=== PATIENT | female | born 2000 | race Caucasian/White ===

== ENCOUNTER 2024-05-24 16:28 | Inpatient (IN) | payer OTHER ==
[~2024-05-24] VITALS: Ht 154.9 cm; Wt 87.7 kg
[2024-05-24 17:00] VITALS: BP 131/79; PULSE 91; TEMP 97.8
[2024-05-24] MEDS ORDERED: LR 1,000 ML IV SCH ×2 (17:15→23:30)
[2024-05-24] MEDS ORDERED: MAGNESIUM200 MG PO (17:30)
[2024-05-24] MEDS ORDERED: COLACE 100100 MG/CAP PO (17:31)
[2024-05-24 17:36] LABS: BASO # 0.1 K/mm3 (0.0-0.2); BASO % 0.5 % (0.0-2.0); EOS # 0.1 K/mm3 (0.0-0.7); EOS % 0.8 % (0.0-4.0); GRAN # 8.6 K/mm3 (1.4-6.5); HEMATOCRIT 37.2 % (37.0-47.0); HEMOGLOBIN 12.7 g/dl (12.5-16.0); LYMPH # 2.5 K/mm3 (1.2-3.4); LYMPH % 20.7 % (20.0-51.0); MEAN CELL VOLUME 90 fl (80.0-100.0); MEAN CORPUSCULAR HEMOGLOBIN 31 pg (27-31); MEAN CORPUSCULAR HGB CONC 34 g/dl (33.0-37.0); MEAN PLATELET VOLUME 9.4 fl (7.4-10.4); MONO # 0.7 K/mm3 (0.1-0.6); MONO % 5.6 % (1.7-9.3); PLATELET COUNT 370 K/mm3 (130-400); RED BLOOD COUNT 4.15 M/mm3 (4.10-5.30)
--- NOTE | 2024-05-24 18:20 | NUR ---
Sitting upright on birthing ball upon return from bathroom. IV to INT, as noted, no augmentation of labor at this time. Per , to hold on augmentation until midnight. This explained to patient. Verbalizes understanding.
[2024-05-24 18:30] VITALS: BP 142/80; PULSE 96; TEMP 98.3
--- NOTE | 2024-05-24 18:41 | NUR ---
1630 - Pt and spouse arrive ambulatory to unit, pt changes into gown, EFM explained and placed. Pt states she was squatting and felt a "pop" at 1545 then had a lot of clear fluid running down her legs. Fluid has not stopped leaking. Pt denies vaginal bleeding, reports good movement, and does not think she is having contractions but reports back pain that sometimes comes and goes. Amnitest swab done, positive. SVE with permission /, clear fluid noted. Dr. Maldonado on unit and notified, orders for admission received. Pt informed of plan to admit, verbalizes understanding. IV started in left forearm, labs drawn, LR started per protocol. Consents discussed and signed. Pt reports history of using Delta 8 last year, informed of need to do urine drug screen, pt verbalizes understanding and agreement. Pt denies needs at this time. 1735 - Pt taken off monitors to go to the bathroom, provided with panties and pad to wear for ambulation.
--- NOTE | 2024-05-24 19:11 | NUR ---
Up to bathroom.
--- NOTE | 2024-05-24 19:40 | NUR ---
Note intermittently broken tracing while patient sitting upright on birthing ball. Frequent repositioning of US.
--- NOTE | 2024-05-24 19:42 | NUR ---
Up to bathroom.
--- NOTE | 2024-05-24 19:57 | NUR ---
Allowed off of EFM to ambulate in hallways.
[2024-05-24 20:00] VITALS: BP 133/81; PULSE 88; TEMP 98.1
[2024-05-24 20:21] LABS: TRICYCLIC ANTIDEPRESS URINE NEGATIVE (NEGATIVE)
--- NOTE | 2024-05-24 21:11 | NUR ---
Allowed off of EFM to ambulate in hallways at this time. Accompanied by significant other.
[2024-05-24 22:30] VITALS: BP 123/72; PULSE 88; TEMP 98.2
--- NOTE | 2024-05-24 23:23 | NUR ---
Note patient beginning to breathe through some contractions.
[2024-05-24] MEDS ORDERED: LR & Oxytocin 500 ML IV SCH ×2 (23:30)
--- NOTE | 2024-05-24 23:56 | NUR ---
Pit start @ 2mU/min at this time with explanation to patient. Verbalizes understanding. Note, Category I strip prior to start.
[2024-05-25] VITALS (44 sets, daily range): BP systolic 89–136; BP diastolic 51–90; PULSE 67–121; TEMP 97.5–100.3
[2024-05-25] MEDS ORDERED: Ondansetron 4 MG/2 ML VIAL IV PRN ×2 (00:45→03:15)
--- NOTE | 2024-05-25 01:00 | NUR ---
Note continued difficulty tracing contractions, despite changing out monitor, multiple attempts to reposition toco.
--- NOTE | 2024-05-25 02:00 | NUR ---
Requests epidural. LR bolus begun. Will notify anesthesia of patient request.
--- NOTE | 2024-05-25 02:28 | NUR ---
RACHANA Jaeger, in-house.
[2024-05-25] MEDS ORDERED: ROPivacaine PF 0.2% 200 ML IV ONE (02:33)
[2024-05-25] MEDS ORDERED: diphenhydrAMINE 50 MG/ML 1 ML VIAL IV PRN (03:15)
[2024-05-25] MEDS ORDERED: Naloxone 0.4 MG/ML VIAL IV PRN ×2 (03:15→11:00)
[2024-05-25] MEDS ORDERED: diphenhydrAMINE 25 MG CAP PO PRN (03:15)
[2024-05-25] MEDS ORDERED: ePHEDrine 50 MG/10 ML VIAL IV PRN (03:15)
--- NOTE | 2024-05-25 04:00 | NUR ---
Repositioned left lateral with peanut ball.
--- NOTE | 2024-05-25 04:15 | NUR ---
Ephedrine 10 mg IV push administered as noted hypotension, intermittent late decels, prolonged variable decels.
--- NOTE | 2024-05-25 04:25 | NUR ---
Repeat dose Ephedrine 10 mg IVP administered.
--- NOTE | 2024-05-25 04:27 | NUR ---
Repositioned supine with wedge to left side.
--- NOTE | 2024-05-25 04:33 | NUR ---
Repeat dose Ephedrine 10 mg IVP administered for persistent hypotension.
--- NOTE | 2024-05-25 05:30 | NUR ---
Repositioned wedged right. Note tachycardia. Afebrile.
--- NOTE | 2024-05-25 05:32 | NUR ---
Repeat SVE, then repositioned left lateral following.
--- NOTE | 2024-05-25 05:43 | NUR ---
Repositioned wedged right.
--- NOTE | 2024-05-25 06:04 | NUR ---
Repositioned wedged left. Rate of pitocin cut in half to 6mU/min, as noted recurrent variable decelerations, sometimes indeterminate baseline, and marked variability.
--- NOTE | 2024-05-25 06:20 | NUR ---
Report to Sita Zambrano RN, who will resume care from this point forward.
--- NOTE | 2024-05-25 07:00 | NUR ---
This RN assumes care of pt at 0615. Recurrent variables noted on FHR strip, deep variables into 80s at 0653 and 0655. SVE with permission at this time. Dr. Webb notified, orders to begin pushing with pt.
[2024-05-25] MEDS ORDERED: Loratadine 10 MG TAB PO PRN (09:45)
[2024-05-25] MEDS ORDERED: Magnes Hydrox (MOM) 80 MG/ML 30 ML CUP PO PRN (09:45)
--- NOTE | 2024-05-25 10:44 | NUR ---
0710 - Dixon removed, 250ml urine noted in bag. Pt repositioned for pushing. 0715 - Pushing started with contractions, deep variable decels noted with contractions. Moderate variability with accelerations remain. 0738 - Pitocin increased to 8. 0915 - Pushing continues. FHR tachy into 180s-200s. Maternal axillary temp 100.3. Dr. Webb on unit and notified, physician to bedside for delivery. 09 - Viable male infant delivered via attended by Dr. Webb. Cord clamped by Dr. Webb and cut by father. Infant taken to warmer per mother's request, care of transferred to GAYLE Panda of nursery. 923 - Placenta spontaneously delivered by Dr. Webb. Pitocin started per protocol. Repair of vaginal wall laceration performed by Physician. Pericare provided, clean bed pad and ice pack placed. Pt repositioned for comfort, denies needs at this time.
[2024-05-25] MEDS ORDERED: Measles/Mumps/Rubella Virus Vaccine Live w Diluent 0.5 ML VIAL SQ SCH (11:00)
[2024-05-25] MEDS ORDERED: Tdap Vaccine 0.5 ML SYRINGE IM SCH (11:00)
[2024-05-25] MEDS ORDERED: Witch Hazel 50% Pads Bulk TUB TP PRN (11:00)
[2024-05-25] MEDS ORDERED: Phenylephrine/Mineral Oil/Petrolatum 57 GM TUBE RC PRN (11:00)
[2024-05-25] MEDS ORDERED: oxyCODONE 5 MG TAB PO PRN (11:00)
[2024-05-25] MEDS ORDERED: Mag/Al Hydrox/Simeth Susp 30 ML CUP PO PRN (11:00)
[2024-05-25] MEDS ORDERED: Acetaminophen 500 MG TAB PO SCH (11:00)
[2024-05-25] MEDS ORDERED: Ibuprofen 800 MG TAB PO SCH (11:00)
[2024-05-25] MEDS ORDERED: Sennosides/Docusate 8.6-50 MG TAB PO SCH (17:00)
[2024-05-25] MEDS ORDERED: traZODone 50 MG TAB PO PRN (21:00)
[2024-05-26 01:15] VITALS: BP 127/75; PULSE 96; TEMP 97.9
[2024-05-26] MEDS ORDERED: ROXICODONE 55 MG/TAB PO (06:14)
[2024-05-26] MEDS ORDERED: MOTRIN 800800 MG/TAB PO (06:14)
[2024-05-26 09:00] VITALS: BP 124/74; PULSE 68; TEMP 98.1
--- NOTE | 2024-05-26 09:32 | NUR ---
Initial visit; Parents thanked [employer] for offering congratulations and God's blessings for the of their son. [employer] thanked family for choosing [facility].
--- NOTE | 2024-05-26 10:56 | NUR ---
cripple worker received consult due to patient reporting using Delta-8 last year but denied anything during and UDS were negative upon admission. DHARA met with patient nurse whom reported no concerns other than Delta-8 prior to and vaping daily. No concerns of the mother or father caring for baby at this time. DHARA met with Dr. Zarate whom reviewed patient's OB chart and did not see any report of previous drug usage other than the note upon admission when patient notified nursing of using Delta-8 last year. No concerns at this time. DHARA met with patient and her , Lauro, P# [phone], to complete assessment. Patient reports she sees her OBGYN for her medical needs and that is Dr. Webb. [employer] will be Dr. Steward in [place]. Pharmacy is [facility] in [place]. Insurance is [employer] and patient understands how to add baby to their insurance. Patient is not currently employed and will be staying home with baby. Patient and her report to have all supplies ready for baby including but not limited to car seat, bedside bassinet, clothing, breast pump, diapers. Patient reports they will need to meat pickler formula until her supply comes in to breast feed but they did not have any concerns about being able to pick that up. Patient and 's family is in [place] and patient and baby planned to move there in June when her is deployed. Patient reports she has WIC services at the [facility]. SW discussed patient mentioning she used delta-8, patient denied using it during her . Patient plans to pump to feed baby but will be using formula until her supply comes in. DHARA provided mental health resources, mental health and substance use information, maternal and child health, lauryn co resource guide and information on depression. DHARA discussed the importance of mental health especially after transitioning from giving . Patient understood and has no questions or concerns at this time. CPS intake ID: [id number]
--- NOTE | 2024-05-29 13:44 | NUR ---
Cord blood resulted and it is negative
== END 2024-05-26 14:45 | disposition home or self-care (01) | DRG 806 ==
LOC: LDRO 16:28 → LDR 17:02 → OB 17:02
PROVIDERS: ADMIT Obstetrics & Gynecology
PROC: 10E0XZZ Delivery of Products of Conception, External Approach (ICD-10-PCS; principal; 2024-05-25)
PROC: 0KQM0ZZ Repair Perineum Muscle, Open Approach (ICD-10-PCS; 2024-05-25)
PROC: 3E033VJ Introduction of Other Hormone into Peripheral Vein, Percutaneous Approach (ICD-10-PCS; 2024-05-25)
DX: O69.81X0 Labor and delivery complicated by cord around neck, without compression, not applicable or unspecified (principal); O71.4 Obstetric high vaginal laceration alone; Z37.0 Single live birth; Z3A.38 38 weeks gestation of pregnancy; O77.0 Labor and delivery complicated by meconium in amniotic fluid
CPT/HCPCS: J2405; J2590; J2795; J7120